=== PATIENT | female | born 1975 ===

== ENCOUNTER 2018-01-09 20:11 | Emergency (ER) | payer BC ==
[2018-01-09] MEDS ORDERED: Albuterol/Ipratropium NEB.SOL* Albuterol 2.5 MG/Ipratropium 0.5 MG 3 ML INH ONE (20:29)
--- NOTE | 2018-01-09 20:35 | UC ---
Respiratory Complaint HPI - HPI Summary HPI Summary: Pt comes in today c/o SOB that started this morning and has progressively gotten worse. she denies cp but has upper back pain. Deneis asthma. quit smoking 2 mo ago. denies anxiety, but takes prozac for OCD. -denies swelling in her legs, OCP, recent travel or Fhx of blood clots - came inmidway through interview/exam/ekg. -drinks 4-5 beers daily. - History of Current Complaint Chief Complaint: UCRespiratory Stated Complaint: SOB Time Seen by Provider: 01/09/18 20:16 Pain Intensity: 4 - Allergies/Home Medications Allergies/Adverse Reactions: Allergies Allergy/AdvReac Type Severity Reaction Status Date / Time No Known Allergies Allergy Verified 01/09/18 20:29 Home Medications: Home Medications FLUoxetine CAP* [Prozac CAP*] 20 mg PO DAILY 01/09/18 [History Confirmed ] Loratadine 10 mg PO DAILY 01/09/18 [History Confirmed 01/09/18] PMH/Surg Hx/FS Hx/Imm Hx Previously Healthy: Yes - Surgical History Surgical History: Yes Surgery Procedure, Year, and Place: Hysterectomy - Family History Known Family History: Positive: Other - no blood clots or asthma - Social History Alcohol Use: Daily Alcohol Amount: 4-5 beers Substance Use Type: None Smoking Status (MU): Former Smoker Type: Cigarettes Have You Smoked in the Last Year: Yes When Did the Patient Quit Smoking/Using Tobacco: 10/2017 Review of Systems Constitutional: Negative Skin: Negative Eyes: Negative ENT: Negative Respiratory: Shortness Of Breath Cardiovascular: Negative Gastrointestinal: Negative Genitourinary: Negative Motor: Negative Neurovascular: Negative Musculoskeletal: Negative Neurological: Negative Psychological: Negative Is Patient Immunocompromised?: No All Other Systems Reviewed And Are Negative: Yes Physical Exam Triage Information Reviewed: Yes Appearance: Other: - speaking quickly in SOB but then becomes more comfortable with normal jaguar. Vital Signs: Initial Vital Signs Temp 97.5 F 01/09/18 20:15 Pulse 108 01/09/18 20:15 Resp 18 01/09/18 20:15 BP 143/78 01/09/18 20:15 Pulse Ox 99 01/09/18 20:15 Vital Signs Reviewed: Yes Eye Exam: Normal ENT: Positive: Normal ENT inspection, Pharynx normal Neck exam: Normal Neck: Positive: Supple, Nontender, No Lymphadenopathy Respiratory: Positive: Respiratory distress, Decreased breath sounds - throughout and significant. she is grunting while lying supine trying to get a breath., Accessory muscle use, Wheezing - very end expiratory Cardiovascular: Positive: RRR - tachycardic initially at 111 but decreased to 90s while being examind and being more relaxed., No Murmur, Pulses Normal Abdomen Description: Positive: Nontender, Soft Musculoskeletal Exam: Normal Neurological Exam: Normal Psychological Exam: Normal Skin Exam: Normal UC Diagnostic Evaluation - Laboratory O2 Sat by Pulse Oximetry: 99 Re-Evaluation - Re-Evaluation First Eval Re-Evaluation Time: 20:45 - feels significantly improved s/p douneb with resolution of SOB. can take deep breath w/o grunting and gasping. breath sounds improved. Change: Improved Second Eval Re-Evaluation Time: 21:10 Change: Improved Third Eval Re-Evaluation Time: 21:45 - imroved breath sounds. denies SOB or wheezing. she and her are both reassured that she is improved. O2 sat 100%. HR 90 Change: Improved Respiratory Course/Dx - Course Course Of Treatment: EKG: NSR, nml axis, no Brenden/IV changes, no ST/T changes. no [id number] T3 pattern. -CXR neg for pneumonia. -improved w/ duoneb in sx, breath sounds and heart rate. no chest pain or bach pain. just feels upper back pain that she attributes to cleaning today. -alb MDI w/ spacer dispensed here - use Q 4 hrs while sick for cough and SOB. -prednisone 80mgs given here w/ taper to be picked up tomorrow from pharmacy. -adv to go to ER with any worsening/ recurring sx. They are reliable and very agreeable w/ this plan. -f/u with PCP in 3 days. -vitals including heart rate, O2 and resp rate nml at time of d/c. she is speaking nml sentences without any signs of accessory muscle use, smiling and comfortable and appreciative. - Differential Dx/Diagnosis Differential Diagnosis/HQI/PQRI: Asthma, Bronchitis, Lower Resp Infection, Pulmonary Embolism, Other - discting anueryms, pneumonia. Provider Diagnoses: Bronchitis, dyspnea, tachycardia Discharge - Sign-Out/Discharge Documenting (check all that apply): Post-Discharge Follow Up - Discharge Plan Condition: Stable Disposition: HOME Prescriptions: predniSONE TAB* [Deltasone TAB*] 20 mg PO DAILY 13 Days #20 tab Patient Education Materials: Acute Bronchitis (ED) Referrals: Yusra Costa PA [Primary Care Provider] - Additional Instructions: -We discussed risks of prednisone including but not limited to anxiety, agitation, insomnia, GI upset, elevated blood pressures and blood sugar readings , adrenal crisis and avascular necrosis of the hip. -Chest xray was negative for pneumonia -Use the albuterol every 4 hrs as needed for cough and shortness of breath. -start the prednisone sent to your pharmacy tomorrow. Do not stop suddenly without discussing with your physician. -You should go to the ER via 911 with any recurrence or worsening of your symptoms - Billing Disposition and Condition Condition: STABLE Disposition: HOME
--- NOTE | 2018-01-09 21:31 | RAD ---
Indication: Shortness of breath. 2 views the chest including dual energy PA views demonstrates no mediastinal shift. Heart is of normal size and configuration. Lung kennedy are clear. IMPRESSION: No active cardiopulmonary disease is noted.
[2018-01-09] MEDS ORDERED: Albuterol HFA INHALER* 8 gm MDI INH ONE (21:43)
[2018-01-09] MEDS ORDERED: predniSONE TAB* 20 MG PO ONE (21:47)
== END 2018-01-09 22:08 | disposition home or self-care (01) ==
LOC: UCCORT 20:11
DX: J40 Bronchitis, not specified as acute or chronic (principal); R06.00 Dyspnea, unspecified; R00.0 Tachycardia, unspecified; Z87.891 Personal history of nicotine dependence
CPT/HCPCS: 71046; 93005; 99203; A9270-GY; G0463; J7512